=== PATIENT | male | born 1995 | race African-American/Black ===

== ENCOUNTER 2019-06-23 17:11 | Emergency (ER) | payer MEDICAID ==
--- NOTE | 2019-06-23 17:46 | EDM.PDOC ---
ED HPI GENERAL MEDICAL PROBLEM - General Chief Complaint: Skin Complaint Stated Complaint: RASH COVERING BODY Time Seen by Provider: 06/23/19 17:30 Source of Information: Reports: Patient History Limitations: Reports: No Limitations - History of Present Illness INITIAL COMMENTS - FREE TEXT/NARRATIVE: Healthy 24-year-old presents with concerns of rash. Approximately 2 weeks ago he noticed a pruritic rash starting on his left arm. Subsequently had patches spread to his forearm chest and 2 of his legs. It is very pruritic. Not painful. He has no history of similar rashes in the past. No history of eczema. No known allergies. He cannot identify any new irritants such as pets, laundry detergent, chemical contacts at work. No difficulty breathing, wheezing, abdominal pain, abnormal sensation in the throat. Has been trying local anti- itch cream. - Related Data Allergies Allergy/AdvReac Type Severity Reaction Status Date / Time No Known Allergies Allergy Verified 06/23/19 17:31 Home Meds: Home Meds NK [No Known Home Meds] 06/23/19 [History] Social & Family History - Tobacco Use Smoking Status *Q: Never Smoker - Caffeine Use Caffeine Use: Reports: Coffee, Energy Drinks, Soda - Recreational Drug Use Recreational Drug Use: No ED ROS GENERAL - Review of Systems Review Of Systems: See Below Constitutional: Reports: No Symptoms HEENT: Reports: No Symptoms Respiratory: Reports: No Symptoms Cardiovascular: Reports: No Symptoms Endocrine: Reports: No Symptoms GI/Abdominal: Reports: No Symptoms : Reports: No Symptoms Musculoskeletal: Reports: No Symptoms Skin: Reports: Pruritis, Rash Neurological: Reports: No Symptoms Psychiatric: Reports: No Symptoms Hematologic/Lymphatic: Reports: No Symptoms Immunologic: Reports: No Symptoms ED EXAM, SKIN/RASH Exam: See Below Exam Limited By: No Limitations General Appearance: Alert, No Apparent Distress Ears: Normal External Exam Nose: Normal Inspection Throat/Mouth: Normal Inspection Head: Atraumatic, Normocephalic Neck: Normal Inspection Respiratory/Chest: No Respiratory Distress, Lungs Clear Cardiovascular: Regular Rate, Rhythm GI/Abdominal: Normal Bowel Sounds, Soft, Non-Tender Back Exam: Normal Inspection Extremities: Normal Inspection Neurological: Alert, Oriented Psychiatric: Normal Affect Skin: Warm, Dry, Other (scattered raised, erythematous patches on the left arm, chest, and legs. Most prominent on the left arm. Largest of which is several centimeters wide and several centimeters long. No weeping, no scaling, no crusting.) Course - Vital Signs Last Recorded V/S: Last Vital Signs Temp 36.6 C 06/23/19 17:37 Pulse 77 06/23/19 17:37 Resp 16 06/23/19 17:37 BP 154/85 H 06/23/19 17:37 Pulse Ox 96 06/23/19 17:37 - Re-Assessments/Exams Free Text/Narrative Re-Assessment/Exam: Healthy 24-year-old presents with a pruritic rash. No history of eczema. Appears to be an allergic type rash that has been progressive over the last couple weeks. He cannot identify a trigger. It does not a seem eczema like in pattern. He has no other systemic symptoms. Given the progression symptoms despite localized treatments we will do a short course of prednisone. He was instructed to use Benadryl or topical antihistamines for itch relief. We have set him up for referral for PCP to follow up. 06/23/19 17:54 Departure - Departure Time of Disposition: 17:40 Disposition: Home, Self-Care 01 Clinical Impression: Pruritic rash - Discharge Information *PRESCRIPTION DRUG MONITORING PROGRAM REVIEWED*: No *COPY OF PRESCRIPTION DRUG MONITORING REPORT IN PATIENT [place]: No Instructions: Pruritus Referrals: PCP,None [Primary Care Provider] - Forms: ED Department Discharge Additional Instructions: Please take the prescribed steroids for your rash You can take benadryl for the itching (25-50mg), but it will make you sleepy. You can also use anti-itch creams Please follow up with a primary doctor
== END 2019-06-23 17:58 | disposition home or self-care (01) ==
LOC: JP.ED 17:11
DX: L29.9 Pruritus, unspecified (principal)
CPT/HCPCS: 99282

== ENCOUNTER 2019-08-26 11:48 | Emergency (ER) | payer SELFPAY ==
[2019-08-26] MEDS ORDERED: Acetaminophen 325 MG Tab PO ONE (12:04)
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
== END 2019-08-26 13:59 | disposition home or self-care (01) ==
LOC: JP.ED 11:48
DX: S40.012A Contusion of left shoulder, initial encounter (principal); S60.221A Contusion of right hand, initial encounter; V89.2XXA Person injured in unspecified motor-vehicle accident, traffic, initial encounter
CPT/HCPCS: 73020; 73030; 73130; 99284; A9270